=== PATIENT | male | born 1935 | race Caucasian/White ===

== ENCOUNTER 2017-05-28 21:32 | Inpatient (IN) | payer OTHER ==
[~2017-05-28] VITALS: Ht 182.9 cm; Wt 73.1 kg
[2017-05-28 22:28] LABS: HEMATOCRIT 35.7 % (38.0-50.0); HEMOGLOBIN 12.2 G/DL (12.5-16.6); MCH 31.9 PG (29.0-34.0); MCHC 34.2 G/DL (30.0-36.0); MCV 93.2 FL (86-99); PLATELET COUNT 188 K/uL (156-360); RBC DIS.WIDTH-CV 12.8 % (11.8-14.6); RBC DIS.WIDTH-SD 44.3 % (39-53); RED BLOOD COUNT 3.83 M/uL (4.00-5.50)
[2017-05-28 22:38] LABS: ALBUMIN 3.7 g/dL (3.2-4.8); CHLORIDE 104 mEq/L (99-109); POTASSIUM 3.8 mEq/L (3.7-5.4); SODIUM 137 mEq/L (136-147)
[2017-05-28 22:40] LABS: GLUCOSE 137 mg/dL (70-99); TOTAL PROTEIN 6.6 g/dL (6.4-8.3)
[2017-05-28 22:42] LABS: TOTAL BILIRUBIN 0.9 mg/dL (0.0-1.0)
[2017-05-28 22:44] LABS: ALKALINE PHOSPHATASE 54 IU/L (3-129); GFR ESTIMATE (CALCULATED) > 59 mL/min/ (58.99-99999)
[2017-05-28 22:45] LABS: UREA NITROGEN (BUN) 19 mg/dL (9-23)
[2017-05-28 22:46] LABS: AST (GOT) 15 IU/L (2-34)
[2017-05-28 22:47] LABS: ALT (GPT) 9 IU/L (3-49)
[2017-05-28 22:50] LABS: TROP-I INTERPRETATION NEGATIVE; TROPONIN-I < 0.01 ng/mL (0.0-0.30)
[2017-05-29] MEDS ORDERED: LATANOPROST2.5 ML LEFT EYE (00:16)
[2017-05-29] MEDS ORDERED: PRAVACHOL40 MG PO (00:16)
[2017-05-29] MEDS ORDERED: ADULT ASPIRIN R81 MG PO (00:16)
[2017-05-29 02:47] LABS: APPEARANCE SL.HAZY ((CLEAR)); BILIRUBIN NEGATIVE; BLOOD NEGATIVE; COLOR YELLOW ((YELLOW)); GLUCOSE (STRIP) NEGATIVE; KETONES NEGATIVE; LEUKOCYTES NEGATIVE; NITRITE NEGATIVE; PROTEIN (STRIP) NEGATIVE; UROBILINOGEN 0.2 MG/DL (0.2-1.0)
[2017-05-29 03:03] LABS: BACTERIA NONE SEEN /HPF; EPITHELIAL CELLS RARE /HPF; MUCUS 1+ /LPF; UCUL ADDED? NO; WHITE BLOOD CELLS 0-5 /HPF (0-5)
[2017-05-29 05:28] VITALS: BP 98/50
[2017-05-29 07:17] VITALS: BP 109/50
[2017-05-29 10:12] LABS: HEMATOCRIT 34.5 % (38.0-50.0); HEMOGLOBIN 11.3 G/DL (12.5-16.6); MCH 31.5 PG (29.0-34.0); MCHC 32.8 G/DL (30.0-36.0); MCV 96.1 FL (86-99); PLATELET COUNT 165 K/uL (156-360); RBC DIS.WIDTH-SD 45.4 % (39-53); RED BLOOD COUNT 3.59 M/uL (4.00-5.50)
[2017-05-29 15:30] VITALS: BP 130/66
[2017-05-29 23:45] VITALS: BP 153/70
[2017-05-30 06:20] LABS: BASOPHIL (%) 0.4 % (0-1); EOSINOPHIL (%) 0.6 % (0-5); EOSINOPHIL COUNT 0.1 K/uL (0-0.3); HEMATOCRIT 36.8 % (38.0-50.0); HEMOGLOBIN 12.1 G/DL (12.5-16.6); IMMATURE GRANULOCYTE (%) 0.2 % (0.0-0.7); LYMPHOCYTE COUNT 1.1 K/uL (1.0-2.8); MCH 31.3 PG (29.0-34.0); MCHC 32.9 G/DL (30.0-36.0); MCV 95.3 FL (86-99); MONOCYTE (%) 9.2 % (3-12); MONOCYTE COUNT 0.8 K/uL (0-0.8); NEUTROPHIL (%) 76.6 % (45-76); NEUTROPHIL COUNT 6.3 K/uL (1.8-6.4); PLATELET COUNT 188 K/uL (156-360); RBC DIS.WIDTH-SD 45.6 % (39-53); RED BLOOD COUNT 3.86 M/uL (4.00-5.50); WHITE BLOOD COUNT 8.3 K/uL (4.1-10.2)
[2017-05-30 07:31] VITALS: BP 138/70
[2017-05-30] MEDS ORDERED: CLEOCIN300 MG PO (14:02)
== END 2017-05-30 14:49 | disposition home or self-care (01) | DRG 872 ==
LOC: EME → EDBD 21:32 → EME 21:32 → EDOF 05-29 02:22 → 5SOUTH 05-29 02:22 → ENRESERV 05-29 02:23 → 5SOUTH 05-29 04:48
PROVIDERS: Emergency Medicine; Family Medicine; Physician Assistant Medical
DX: A41.9 Sepsis, unspecified organism (principal); L03.115 Cellulitis of right lower limb; R41.0 Disorientation, unspecified; E78.5 Hyperlipidemia, unspecified; R32 Unspecified urinary incontinence; N39.0 Urinary tract infection, site not specified; Z88.0 Allergy status to penicillin; Z79.899 Other long term (current) drug therapy
CPT/HCPCS: 71045; 80053; 81003; 83605; 84484; 85025; 85027; 87040; 93005; 93971; 99281; 99285; J7030